=== PATIENT | male | born 1985 | race Caucasian/White ===

== ENCOUNTER 2016-06-30 20:31 | Emergency (ER) | payer MEDICAID ==
[~2016-06-30] VITALS: Ht 177.8 cm; Wt 83.9 kg
[2016-06-30] MEDS ORDERED: ALPR2TAB2 PO (21:43)
[2016-06-30] MEDS ORDERED: METH-356 PO (21:43)
[2016-06-30 21:50] LABS: DAU SCREEN DISCLAIMER
[2016-06-30] MEDS ORDERED: ONDANSETRON ODT 4 MG ONE (21:51)
[2016-06-30] MEDS ORDERED: LORazepam 1MG TABLET ONE (21:51)
[2016-06-30 21:56] LABS: HEMOGLOBIN 16.1 g/dL (13.7-18.0)
[2016-06-30] MEDS ORDERED: ONDANSETRON ODT 4 MG PO ONE (22:00)
[2016-06-30] MEDS ORDERED: LORazepam 1MG TABLET PO ONE (22:00)
[2016-06-30 22:10] LABS: ASPARTATE AMINO TRANSFERASE 30 U/L (15-37); BLOOD UREA NITROGEN 8 mg/dL (7-18)
[2016-06-30 22:22] LABS: ACETAMINOPHEN < 2 mcg/mL (10-30)
[2016-07-01 01:05] VITALS: BP 113/79
== END 2016-07-01 01:09 | disposition home or self-care (01) ==
LOC: ED 22:37
DX: F32.9 Major depressive disorder, single episode, unspecified (principal); F15.93 Other stimulant use, unspecified with withdrawal; J45.909 Unspecified asthma, uncomplicated; M54.9 Dorsalgia, unspecified; G89.4 Chronic pain syndrome
CPT/HCPCS: 36415; 80053; 80307; 80329; 85025; 99284; Q0162; G0480

== ENCOUNTER 2016-07-30 15:35 | Emergency (ER) | payer MEDICAID, MEDICARE ==
[~2016-07-30] VITALS: Ht 177.8 cm; Wt 84.4 kg
[~2016-07-30 15:35] MED LIST: ALPR2TAB2 PO; METH-356 PO
[2016-07-30] MEDS ORDERED: SODIUM CHLORIDE 0.9% 1,000ML IVBOLUS ONE (16:30)
[2016-07-30] MEDS ORDERED: ONDANSETRON 2MG/ML, 2ML IVPush ONE (16:30)
[2016-07-30] MEDS ORDERED: LORazepam 2 MG/ML, 1ML IVPush ONE (16:30)
[2016-07-30 16:53] LABS: BLOOD UREA NITROGEN 10 mg/dL (7-18)
[2016-07-30] MEDS ORDERED: METH5TAB2 PO (17:51)
[2016-07-30] MEDS ORDERED: HYDR10TA4 PO (18:20)
[2016-07-30] MEDS ORDERED: PROP10TA PO (18:20)
[2016-07-30] MEDS ORDERED: LORazepam 2 MG/ML, 1ML ONE (18:24)
[2016-07-30] MEDS ORDERED: ONDANSETRON 2MG/ML, 2ML ONE (18:24)
[2016-07-30 20:45] VITALS: BP 132/94
== END 2016-07-30 20:48 | disposition home or self-care (01) ==
LOC: ED 20:42
DX: F10.20 Alcohol dependence, uncomplicated (principal); F11.10 Opioid abuse, uncomplicated; F17.210 Nicotine dependence, cigarettes, uncomplicated
CPT/HCPCS: 36415; 80048; 82040; 85025; 93005; 96361; 96374; 96375; 99285; J2060; J2405; J7030

== ENCOUNTER 2016-10-17 02:05 | Emergency (ER) | payer MEDICAID ==
[~2016-10-17] VITALS: Ht 175.3 cm; Wt 74.8 kg
[~2016-10-17 02:05] MED LIST changes: +HYDR10TA4 PO; +METH5TAB2 PO; +PROP10TA PO
[2016-10-17] MEDS ORDERED: LORazepam 1MG TABLET PO ONE (02:30)
[2016-10-17] MEDS ORDERED: LORazepam 1MG TABLET ONE (02:30)
[2016-10-17 03:04] VITALS: BP 116/79
== END 2016-10-17 03:38 | disposition home or self-care (01) ==
LOC: ED 02:39
DX: F15.10 Other stimulant abuse, uncomplicated (principal); G89.29 Other chronic pain; M54.9 Dorsalgia, unspecified; Z72.9 Problem related to lifestyle, unspecified; F17.200 Nicotine dependence, unspecified, uncomplicated; F32.9 Major depressive disorder, single episode, unspecified; F41.1 Generalized anxiety disorder; J45.909 Unspecified asthma, uncomplicated
CPT/HCPCS: 99282

== ENCOUNTER 2016-10-28 10:53 | Emergency (ER) | payer MEDICAID ==
[~2016-10-28] VITALS: Ht 172.7 cm; Wt 60.0 kg
[2016-10-28] MEDS ORDERED: SODIUM CHLORIDE 0.9% 1,000 ML IV ONE (11:41)
[2016-10-28] MEDS ORDERED: NALOXONE 0.4 MG/ML, 1ML IVPush PRN (12:00)
[2016-10-28 12:36] LABS: DAU SCREEN DISCLAIMER
[2016-10-28 12:42] LABS: BLOOD UREA NITROGEN 11 mg/dL (7-18)
[2016-10-28 12:45] LABS: ACETAMINOPHEN < 2 mcg/mL (10-30)
[2016-10-28 14:18] VITALS: BP 107/68
== END 2016-10-28 16:18 | disposition home or self-care (01) ==
LOC: ED 15:39
DX: F11.90 Opioid use, unspecified, uncomplicated (principal); F17.210 Nicotine dependence, cigarettes, uncomplicated; E03.9 Hypothyroidism, unspecified; F25.9 Schizoaffective disorder, unspecified
CPT/HCPCS: 36415; 80048; 80307; 80329; 82040; 85025; 99284; G0480

== ENCOUNTER 2016-11-28 18:07 | Emergency (ER) | payer MEDICAID ==
[~2016-11-28] VITALS: Ht 175.3 cm; Wt 71.3 kg
[2016-11-28 18:17] VITALS: BP 126/82
[2016-11-28] MEDS ORDERED: KETOROLAC 30 MG/1 ML ONE (18:29)
[2016-11-28] MEDS ORDERED: KETOROLAC 30 MG/1 ML IM ONE (18:30)
[2016-11-28] MEDS ORDERED: METHOCARBAMOL 750 MG TABLET ONE (18:33)
[2016-11-28] MEDS ORDERED: METHOCARBAMOL 750 MG TABLET PO ONE (19:00)
[2016-11-28] MEDS ORDERED: HYDROcodone/APAP 5/325 TABLET ONE (19:19)
[2016-11-28] MEDS ORDERED: HYDROcodone/APAP 5/325 TABLET PO ONE (19:30)
== END 2016-11-28 19:53 | disposition home or self-care (01) ==
LOC: ED 19:40
DX: S29.012A Strain of muscle and tendon of back wall of thorax, initial encounter (principal); M62.830 Muscle spasm of back; F25.9 Schizoaffective disorder, unspecified; F41.9 Anxiety disorder, unspecified; J45.909 Unspecified asthma, uncomplicated; W01.0XXA Fall on same level from slipping, tripping and stumbling without subsequent striking against object, initial encounter; Y93.01 Activity, walking, marching and hiking; Y92.89 Other specified places as the place of occurrence of the external cause; Y99.8 Other external cause status
CPT/HCPCS: 71101; 96372; 99284; J1885

== ENCOUNTER 2016-12-08 13:17 | Emergency (ER) | payer MEDICAID ==
[~2016-12-08] VITALS: Ht 175.3 cm; Wt 77.2 kg
[2016-12-08 13:27] VITALS: BP 117/73
[2016-12-08 14:46] LABS: HEMATOCRIT 35.3 % (39.2-51.8); HEMOGLOBIN 11.6 g/dL (13.7-18.0); WHITE BLOOD COUNT 6.1 x10^3/uL (3.4-10)
[2016-12-08 14:51] LABS: BLOOD UREA NITROGEN 15 mg/dL (7-18)
== END 2016-12-08 15:26 | disposition home or self-care (01) ==
LOC: ED 15:25
DX: L03.115 Cellulitis of right lower limb (principal); L03.116 Cellulitis of left lower limb; E03.9 Hypothyroidism, unspecified; J45.909 Unspecified asthma, uncomplicated; F15.10 Other stimulant abuse, uncomplicated; F11.10 Opioid abuse, uncomplicated
CPT/HCPCS: 36415; 71020; 80048; 82040; 85025; 99285